=== PATIENT | female | born 1985 | race Caucasian/White ===

== ENCOUNTER → 2017-10-16 | Outpatient (CLI) | payer BC ==
[~2017-10-16] MED LIST: LEVO112T4 PO
== END | disposition home or self-care (01) ==
LOC: C.LABSPEC 11:07
PROVIDERS: ATTEND Obstetrics & Gynecology
DX: O24.419 Gestational diabetes mellitus in pregnancy, unspecified control (principal); Z3A.00 Weeks of gestation of pregnancy not specified

== ENCOUNTER 2017-10-19 19:23 | Emergency (ER) | payer BC ==
[~2017-10-19] VITALS: Ht 157.5 cm; Wt 50.8 kg
[2017-10-19 19:30] VITALS: Ht 157.5 cm; Wt 50.8 kg
--- NOTE | 2017-10-19 19:57 | EMERGENCY ROOM VISIT NOTE ---
History Report prepared by Derrek: Grecia Rodgers Under the Supervision of: Dr. Fredy Hobbs D.O. First contact with patient: 19:33 Chief Complaint: VAGINAL BLEEDING Stated Complaint: POSSIBLE MISCARRIAGE History of Present Illness The patient is a 32 year old female who presents to the Emergency Room with complaints of persistent vaginal bleeding that began 4 days ago. She states that her last normal menstrual period began on 08/07/17. The patient had a urine exam, which showed that she was . She reports that when she first noted the bleeding, it was small in quantity and dark in color. 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 She denies any abnormal discharge or pain. The patient states that she has been in the past, noting that she did not have any complications with that . She called her lathe mechanic during the weekend, who recommended a RhoGAM shot. Today, she called again to update them on her symptoms and they suggested she come into the Emergency Department for further evaluation. The patient reports a history of gestational diabetes, a deviated septum, and a thyroidectomy. Source of History: patient Onset: 4 days ago Position: other ( system) Quality: other (vaginal bleeding) Timing: other (persistent) Note: Patient denies: abnormal discharge or pain. Review of Systems See HPI for pertinent positives & negatives. A total of 10 systems reviewed and were otherwise negative. Past Medical & Surgical Medical Problems: (1) Gestational diabetes Surgical Problems: (1) Deviated septum (2) H/O thyroidectomy Family History Patient reports no known family medical history. No pertinent family history. Social History Smoking Status: Never Smoker Smokeless Tobacco Use: No Alcohol Use: none Drug Use: none Marital Status: Housing Status: lives with family Occupation Status: employed Current/Historical Medications Scheduled Levothyroxine Sodium (Levothyroxine Sodium), 112 MCG PO DAILY Allergies Coded Allergies: Penicillins (Verified Allergy, Severe, SOB-HIVES, 10/19/17) Physical Exam Vital Signs Date Time Temp Pulse Resp B/P (MAP) Pulse Ox O2 Delivery O2 Flow Rate FiO2 10/19/17 23:59 36.7 65 16 109/70 99 10/19/17 23:16 65 109/70 99 Room Air 10/19/17 22:16 67 108/65 99 Room Air 10/19/17 19:30 36.7 78 16 110/71 100 Room Air Physical Exam GENERAL: Patient is awake, alert, and in no acute distress. Patient is resting comfortably and showing no signs of anxiety EYES: The conjunctivae are clear. The pupils are round and reactive. EARS, NOSE, MOUTH AND THROAT: The nose is without any evidence of any deformity. Mucous membranes are moist tongue is midline NECK: The neck is nontender and supple. RESPIRATORY: Normal respiratory effort is noted there is no evidence of wheezing rhonchi or rales CARDIOVASCULAR: Regular rate and rhythm noted there no murmurs rubs or gallops normal S1 normal S2 GASTROINTESTINAL: The abdomen is soft. Bowel sounds are present in all quadrants. Abdomen is nontender MUSCULOSKELETAL/EXTREMITIES: There is no evidence of gross deformity full range of motion is noted in the hips and shoulders SKIN: There is no obvious evidence of any rash. There are no petechiae, pallor or cyanosis noted. NEUROLOGIC: Patient is awake alert and oriented x3 Medical Decision & Procedures ER Provider Diagnostic Interpretation: Radiology results as stated below per my review and radiologist interpretation: <14 WKS SINGLE CLINICAL HISTORY: Vaginal bleeding. COMPARISON STUDY: None. FINDINGS: The uterus measures 8.7 x 5.1 x 6.0 cm. Endometrium is heterogeneous and borderline thickened measuring 1.2 cm in thickness. No evidence for an intrauterine gestational sac. The ovaries are normal in size and demonstrate normal color flow. No adnexal masses identified. No pelvic free fluid. IMPRESSION: No evidence for an intrauterine gestational sac. If the patient has a positive test, then this could represent an early nonvisualized intrauterine gestation, recent spontaneous , or nonvisualized ectopic . Follow-up beta-hCG and/or pelvic ultrasound is recommended for further evaluation. Electronically signed by: Deniz Fleming M.D. 10/19/2017 10:24 PM Dictated Date/Time: 10/19/2017 10:21 PM Laboratory Results 10/19/17 20:25 Red Blood Count 3.39, Mean Corpuscular Volume 94.1, Mean Corpuscular Hemoglobin 32.2, Mean Corpuscular Hemoglobin Concent 34.2, Mean Platelet Volume 9.8, Neutrophils (%) (Auto) 51.8, Lymphocytes (%) (Auto) 34.7, Monocytes (%) (Auto) 7.7, Eosinophils (%) (Auto) 5.0, Basophils (%) (Auto) 0.7, Neutrophils # (Auto) 3.96, Lymphocytes # (Auto) 2.65, Monocytes # (Auto) 0.59, Eosinophils # (Auto) 0.38, Basophils # (Auto) 0.05 10/19/17 20:25 Test 10/19/17 20:25 White Blood Count 7.64 K/uL (4.8-10.8) Red Blood Count 3.39 M/uL (4.2-5.4) Hemoglobin 10.9 g/dL (12.0-16.0) Hematocrit 31.9 % (37-47) Mean Corpuscular Volume 94.1 fL (80-100) Mean Corpuscular Hemoglobin 32.2 pg (25-34) Mean Corpuscular Hemoglobin Concent 34.2 g/dl (32-36) Platelet Count 287 K/uL (130-400) Mean Platelet Volume 9.8 fL (7.4-10.4) Neutrophils (%) (Auto) 51.8 % Lymphocytes (%) (Auto) 34.7 % Monocytes (%) (Auto) 7.7 % Eosinophils (%) (Auto) 5.0 % Basophils (%) (Auto) 0.7 % Neutrophils # (Auto) 3.96 K/uL (1.4-6.5) Lymphocytes # (Auto) 2.65 K/uL (1.2-3.4) Monocytes # (Auto) 0.59 K/uL (0.11-0.59) Eosinophils # (Auto) 0.38 K/uL (0-0.5) Basophils # (Auto) 0.05 K/uL (0-0.2) RDW Standard Deviation 42.5 fL (36.4-46.3) RDW Coefficient of Variation 12.4 % (11.5-14.5) Immature Granulocyte % (Auto) 0.1 % Immature Granulocyte # (Auto) 0.01 K/uL (0.00-0.02) Prothrombin Time 10.2 SECONDS (9.0-12.0) Prothromb Time International Ratio 1.0 (0.9-1.1) Activated Partial Thromboplast Time 25.0 SECONDS (21.0-31.0) Partial Thromboplastin Ratio 1.0 Urine Color YELLOW Urine Appearance CLEAR (CLEAR) Urine pH 5.5 (4.5-7.5) Urine Specific [place] 1.026 (1.000-1.030) Urine Protein NEG (NEG) Urine Glucose (UA) NEG (NEG) Urine Ketones NEG (NEG) Urine Occult Blood 3+ (NEG) Urine Nitrite NEG (NEG) Urine Bilirubin NEG (NEG) Urine Urobilinogen NEG (NEG) Urine Leukocyte Esterase NEG (NEG) Urine WBC (Auto) 1-5 /hpf (0-5) Urine RBC (Auto) 0-4 /hpf (0-4) Urine Hyaline Casts (Auto) 1-5 /lpf (0-5) Urine Epithelial Cells (Auto) >30 /lpf (0-5) Urine Bacteria (Auto) 1+ (NEG) Urine Yeast (Auto) (NONE PRSENT) Anion Gap 4.0 mmol/L (3-11) Est Creatinine Clear Calc Drug Dose 82.7 ml/min Estimated GFR () 117.4 Estimated GFR (Non- 101.3 BUN/Creatinine Ratio 17.0 (10-20) Calcium Level 8.5 mg/dl (8.5-10.1) Total Bilirubin 0.3 mg/dl (0.2-1) Aspartate Amino Transf (AST/SGOT) 12 U/L (15-37) Alanine Aminotransferase (ALT/SGPT) 18 U/L (12-78) Alkaline Phosphatase 43 U/L (45-117) Total Protein 7.2 gm/dl (6.4-8.2) Albumin 4.2 gm/dl (3.4-5.0) Globulin 3.0 gm/dl (2.5-4.0) Albumin/Globulin Ratio 1.4 (0.9-2) Human Chorionic Gonadotropin, Quant 2225 mIU/mL Laboratory results per my review. ED Course 1937: The patient was evaluated in room C3. A complete history and physical examination were performed. Ordered a RhoGAM shot. 5: I reevaluated the patient, who was resting and states that she feels significantly better. Updated her on test findings. She verbalized complete understanding. 2328: Upon reevaluation, the patient is resting comfortably. I discussed the results and treatment plan with her. She verbalized agreement of the treatment plan. The patient was discharged home. Medical Decision Prior records/ancillary studies reviewed. Triage Nursing notes reviewed. The patient's history was concerning for vaginal bleeding and abdominal pain. Differential diagnosis: Etiologies such as ectopic , dysfunction uterine bleeding, bleeding dyscrasia, trauma, infection, as well as others were entertained. The patient is a 32-year-old female who presented to the emergency department for an evaluation of vaginal bleeding. The patient is approximately 11 weeks by dates. She was having cramping and bleeding. 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 The patient's beta hCG quantitative was well into the discriminatory zone. No definite intrauterine was noted on ultrasound but her endometrial stripe was thickened. Her physical exam was not consistent with acute surgical abdomen. She was not orthostatic by history. I discussed patient's laboratory and radiographic studies with her. She required RhoGam because of her blood type. I discussed that this could represent an ongoing miscarriage but ectopic was still a possibility. For this reason she was encouraged to follow-up with her primary care physician in 48 hours for repeat laboratory studies as well as an ultrasound if warranted. She was also encouraged to have her hemoglobin and her beta hCG quantitative repeated. Also recommended that she return to the emergency department immediately if symptoms change worsen or the need arises. Medication Reconcilliation Current Medication List: was personally reviewed by me Blood Pressure Screening Patient's blood pressure: Normal blood pressure Blood pressure disposition: Did not require urgent referral Impression Primary Impression: First trimester bleeding Additional Impression: Threatened miscarriage Scribe Attestation The scribe's documentation has been prepared under my direction and personally reviewed by me in its entirety. I confirm that the note above accurately reflects all work, treatment, procedures, and medical decision making performed by me. Departure Information Dispostion Home / Self-Care Referrals Hakan Rodriguez M.D. (PCP) Forms HOME CARE DOCUMENTATION FORM, IMPORTANT VISIT INFORMATION, WORK / SCHOOL INSTRUCTIONS Patient Instructions My [facility] Additional Instructions Follow-up with your MIXING ROLL OPERATOR physician in 48 hours to have a repeat blood test as well as a ultrasound if needed. Avoid any strenuous activity. I would recommend repeat laboratory studies to ensure that your anemia is improving as your red blood cell count was low in the emergency department this evening. Return the emergency department immediately if symptoms change worsen or the need arises. Problem Qualifiers
[2017-10-19 21:02] LABS: BASO % 0.7 %; BASO ABS # 0.05 K/uL (0-0.2); EOS ABS # 0.38 K/uL (0-0.5); HEMATOCRIT 31.9 % (37-47); HEMOGLOBIN 10.9 g/dL (12.0-16.0); IG# 0.01 K/uL (0.00-0.02); LYMPH % 34.7 %; LYMPH ABS # 2.65 K/uL (1.2-3.4); MEAN CELL VOLUME 94.1 fL (80-100); MEAN CORPUSCULAR HEMOGLOBIN 32.2 pg (25-34); MEAN CORPUSCULAR HGB CONC 34.2 g/dl (32-36); MEAN PLATELET VOLUME 9.8 fL (7.4-10.4); MONO % 7.7 %; MONO ABS # 0.59 K/uL (0.11-0.59); NEUT % 51.8 %; NEUT ABS # 3.96 K/uL (1.4-6.5); PLATELET COUNT 287 K/uL (130-400); RED CELL DISTRIBUTION WIDTH CV 12.4 % (11.5-14.5); RED CELL DISTRIBUTION WIDTH SD 42.5 fL (36.4-46.3); WHITE BLOOD COUNT 7.64 K/uL (4.8-10.8)
[2017-10-19 21:12] LABS: ALBUMIN 4.2 gm/dl (3.4-5.0); CALCIUM 8.5 mg/dl (8.5-10.1); CREATININE 0.78 mg/dl (0.60-1.20); POTASSIUM 3.5 mmol/L (3.5-5.1)
[2017-10-19 21:15] LABS: TOTAL PROTEIN 7.2 gm/dl (6.4-8.2)
--- NOTE | 2017-10-19 22:25 | DIAGNOSTIC IMAGING REPORT ---
<14 WKS SINGLE CLINICAL HISTORY: Vaginal bleeding. COMPARISON STUDY: None. FINDINGS: The uterus measures 8.7 x 5.1 x 6.0 cm. Endometrium is heterogeneous and borderline thickened measuring 1.2 cm in thickness. No evidence for an intrauterine gestational sac. The ovaries are normal in size and demonstrate normal color flow. No adnexal masses identified. No pelvic free fluid. IMPRESSION: No evidence for an intrauterine gestational sac. If the patient has a positive test, then this could represent an early nonvisualized intrauterine gestation, recent spontaneous , or nonvisualized ectopic . Follow-up beta-hCG and/or pelvic ultrasound is recommended for further evaluation. Electronically signed by: Deniz Fleming M.D. 10/19/2017 10:24 PM Dictated Date/Time: 10/19/2017 10:21 PM
[2017-10-19] MEDS ORDERED: LEVO112T4 PO (23:01)
[2017-10-19 23:59] VITALS: BP 109/70; PULSE 65; TEMP 36.7; O2SAT 99
== END 2017-10-20 | disposition home or self-care (01) ==
LOC: C.EDB 19:24 → C.EDC 10-20
DX: O20.0 Threatened abortion (principal); Z86.32 Personal history of gestational diabetes; E89.0 Postprocedural hypothyroidism; Z88.0 Allergy status to penicillin; Z3A.11 11 weeks gestation of pregnancy

== ENCOUNTER 2019-10-19 23:41 | Inpatient (IN) ==
[2019-10-20] MEDS ORDERED: CEFAZOLIN 1000MG 1,000 MG/7.5 ML SYR IV PRN (00:11)
[2019-10-20] MEDS ORDERED: OXYTOCIN 30 UNITS/500 ML BAG IV PRN ×3 (00:11→08:56)
--- NOTE | 2019-10-20 00:18 | History & Physical Report ---
Date of Service October 20, 2019 Assessment & Plan (1) Diet controlled gestational diabetes mellitus (GDM), antepartum: check blood sugar q3 hr for goal of 70-120 (2) GBS (group B Streptococcus carrier), +RV culture, currently : treat with ancef and monitor closely. Unfortunately no sensitivities done for clinda, so may have to go with vanc. (3) Normal labor: admit. fetus category one and reassuring. epidural now as desires. Then plan expectant management. arom/pit as indicated. anticipate . History of Present Illness Chief Complaint: contractions Primary Care Provider: NO PCP Patient is a 34yowf with iup at 40 6/7 weeks who presents to labor and delivery with c/o contractions since 8pm. Getting strong. no vb/lof. +fm. complicated by GDM, diet controlled well. hypothyroidism--well managed, Rh-, received rhogam, GBS positive. Patient has allergy to pcn which she notes is hives. When questioned about sob, she is vague about this. Had been scheduled for indution today and had discussed with Dr. Valencia about this allergy and they had decided to trial Ancef carefully. labs--O-/ab-/ri/rprnr/hepb-/hiv-/gc/ct-/ declines cf/sma/afp/low risk panorama Allergies Allergy/AdvReac Type Severity Reaction Status Date / Time Penicillins Allergy Severe SOB-HIVES Verified 10/14/19 09:26 bee venom protein (honey bee) Allergy Mild Only when Verified 10/14/19 09:26 stung multipe times Home Medications Home Medications Medication Instructions Recorded Confirmed Type blood sugar diagnostic #10 ea 02/15/19 10/14/19 History lancets 33 gauge #100 ea 02/15/19 10/14/19 History prenat.vits,tin,vzi-ntjr-myvvs 1 tab PO DAILY 02/15/19 10/19/19 History acetone (urine) test #50 ea 02/18/19 10/14/19 Rx levothyroxine 100 mcg tablet 100 mcg PO DAILY #90 tab 08/04/19 10/19/19 Rx nitrofurantoin 100 mg PO Q12H 5 Days #10 cap 09/30/19 10/19/19 Rx monohydrate/macrocrystals 100 mg capsule Patient History Medical History Fracture of L1 vertebra History of gestational diabetes mellitus (Inactive) Spontaneous (Inactive) Varicella Surgical History History of cervical biopsy History of thyroidectomy S/P inguinal hernia repair S/P wisdom tooth extraction Status post nasal septoplasty Family History Mother Hypothyroidism Aunt Graves' disease Brother Diaphragmatic hernia Social History Preferred Language: French Beliefs That Will Affect Care: None marital status: marital status details: Ajith Noble (36) [phone] Current Living Situation Comment: dog current occupational status: employed 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 Review of Systems All systems reviewed & are unremarkable except as noted in HPI & below Physical Exam Constitutional: WD/WN, vitals as above Gastrointestinal (Abdomen): soft, gravid, nt Psychiatric: A+Ox3, euthymic affect Genitourinary: cx--/-2 per nursing toco--q3-5min efm--130s with mod variability, accels to 150s, no decels Results & Data Vital Signs (Past 12 Hours) Vital Signs Pulse Resp BP 10/19/19 23:53 70 129/85 10/19/19 23:52 59 L 18 143/81 H 10/19/19 23:47 59 L 143/81 H Code Status & VTE Plan VTE Prophylaxis Plan VTE Prophylaxis will be ordered: No Coding Level of Care Code None Diagnoses Diet controlled gestational diabetes mellitus (GDM), antepartum O24.410 GBS (group B Streptococcus carrier), +RV culture, currently O99.820 Normal labor O80; Z37.9
[2019-10-20] MEDS: LACTATED RINGER'S 1,000 ML IV PRN ×3 (00:25→07:53)
[2019-10-20] MEDS ORDERED: ePHEDrine sulfate 50 MG/ML AMP ONE (00:28)
[2019-10-20] MEDS ORDERED: BUPIVACAINE 0.25% 30 ML VIAL ONE (00:28)
[2019-10-20] MEDS ORDERED: fentaNYL citrate 100 MCG/2 ML VIAL ONE (00:28)
[2019-10-20] MEDS ORDERED: fentaNYL 2MCG/ML ROPIV 1.25MG/ML 100 ML BAG EPI ONE (00:29)
[2019-10-20] MEDS ORDERED: CEFAZOLIN 2000MG 2,000 MG/15 ML SYR IV STA (00:30)
[2019-10-20 00:42] LABS: Hematocrit (blood only) 32.5 % (37-47); Hemoglobin 10.7 g/dL (12.0-16.0); Mean Corpuscular Hemoglobin 29.9 pg (25-34); Mean Corpuscular Volume 90.8 fL (80-100); Mean Platelet Volume 10.8 fL (7.4-10.4); Platelet Count 247 K/uL (130-400); RDW Coefficient of Variation 15.5 % (11.5-14.5); RDW Standard Deviation 50.8 fL (36.4-46.3); Red Blood Count 3.58 M/uL (4.2-5.4); White Blood Count 11.32 K/uL (4.8-10.8)
--- NOTE | 2019-10-20 00:56 | Anesthesiology Consultation ---
Date of Service October 20, 2019 Assessment & Plan (1) Encounter for pre-operative examination: Chart Review Chart Review: Acceptable Risk for Labor Epidural Consults Requested none ASA ASA2 Proposed Anesthesia Anesthesia Type: Labor Epidural Risk / Benefits Reviewed With: PT / POA / Parent / Guardian, Accepts Plan and Informed Consent Obtained History Height/Weight Height: 5 ft 2 in Weight: 72.575 kg Allergies Allergy/AdvReac Type Severity Reaction Status Date / Time Penicillins Allergy Severe SOB-HIVES Verified 10/14/19 09:26 bee venom protein (honey bee) Allergy Mild Only when Verified 10/14/19 09:26 stung multipe times Medications Home Medications Medication Instructions Recorded Confirmed Last Taken blood sugar diagnostic #10 ea 02/15/19 10/14/19 Unknown lancets 33 gauge #100 ea 02/15/19 10/14/19 Unknown prenat.vits,tin,obe-edjg-hazlf 1 tab PO DAILY 02/15/19 10/19/19 10/19/19 acetone (urine) test #50 ea 02/18/19 10/14/19 Unknown levothyroxine 100 mcg tablet 100 mcg PO DAILY #90 tab 08/04/19 10/19/19 10/19/19 Active Medications Generic Name Dose Route Start Last Admin Trade Name Freq PRN Reason Stop Dose Admin Lactated Ringer's 1,000 mls @ 125 mls/hr 10/20/19 00:11 10/20/19 00:25 Lr IV 10/22/19 00:10 999 mls/hr .Q8H PRN Administration L&D Protocol Protocol Past Medical History Medical History Fracture of L1 vertebra History of gestational diabetes mellitus (Inactive) Hypothyroidism, postablative (Chronic) Spontaneous (Inactive) Varicella Exercise / Class Metabolic Activity II 4-5 Yardwork/Stairs/Walk up hill Past Family History Family History Mother Hypothyroidism Aunt Graves' disease Brother Diaphragmatic hernia Past Surgical History Surgical History History of cervical biopsy History of thyroidectomy S/P inguinal hernia repair S/P wisdom tooth extraction Status post nasal septoplasty Past Anesthesia History No Hx of Anesthesia Complications and No Family Hx of Anesthesia Complications History of PONV No Hx of PONV and No Hx of Motion Sickness Social History Smoking Status: Never smoker Hx Alcohol Use: No Hx Substance Use: No Physical Exam Vital Signs Last Vital Signs Temp 98.8 F 10/19/19 23:53 Pulse 70 10/19/19 23:53 Resp 18 10/19/19 23:53 BP 129/85 10/19/19 23:53 ENMT Mouth: no dentition abnormality Thyromental Distance: > or= 3.5 Finger Breadths Mallampati Class: II Neck normal visual inspection Respiratory normal respiratory effort Auscultation: lungs clear to auscultation bilaterally Cardiovascular Rate/Rhythm: regular rate and regular rhythm Testing Laboratory Results 10/20/19 00:26 10/20/19 00:37 POC Glucose 80
[2019-10-20 01:06] LABS: Mean Corpuscular Hgb Conc 32.9 g/dL (32-36)
[2019-10-20] MEDS ORDERED: ONDANSETRON INJ 2 MG/ML 2 ML VIAL IV PRN (01:12)
[2019-10-20] MEDS ORDERED: NALBUPHINE HCL INJ 10 MG/ML AMP IV PRN (01:12)
[2019-10-20] MEDS ORDERED: ePHEDrine sulfate 50 MG/ML AMP IV PRN (01:12)
[2019-10-20] MEDS ORDERED: fentaNYL 2MCG/ML ROPIV 1.25MG/ML 100 ML BAG EPI PRN (01:12)
[2019-10-20] MEDS ORDERED: NALOXONE HCL 1 MG in SODIUM CHLORIDE 0.9% 1000ML 1,000 ML IV PRN (01:12)
[2019-10-20] MEDS ORDERED: DiphenhydrAMINE HCL 50 MG/ML VIAL IV PRN (01:12)
[2019-10-20] MEDS ORDERED: NALOXONE HCL 0.4 MG/1 ML VIAL/CARP IV PRN (01:12)
--- NOTE | 2019-10-20 07:25 | Anesthesiology Progress Note ---
Date of Service October 20, 2019 Subjective Called by nurse for labor pt c/o pain. 8 cm cervical dilation at last exam. 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 Bolused epidural with 2% lidocaine 5cc plus fentanyl 100mcg. VSS, FHR nl. Physical Exam Vital Signs: Last Vital Signs Temp 37.3 C 10/20/19 07:05 Pulse 82 10/20/19 07:20 Resp 22 10/20/19 07:05 BP 138/85 10/20/19 07:19 Pulse Ox 99 10/20/19 07:20 Results & Data Medications Administered Lactated Ringer's (Lr) 1,000 mls @ 125 mls/hr IV .Q8H PRN; Protocol PRN Reason: L&D Protocol Stop: 10/22/19 00:10 Last Admin: 10/20/19 02:53 Dose: 125 mls/hr Documented by: [id number] Infusion: 10/20/19 02:53 Dose: 125 mls/hr Documented by: [id number] Infusion: 10/20/19 01:09 Dose: 125 mls/hr Documented by: [id number] Admin: 10/20/19 00:25 Dose: 999 mls/hr Documented by: [id number] Oxytocin (Pitocin) 30 units in 500 mls @ 4 mls/hr IV .Q24H PRN; Protocol PRN Reason: Labor Induction/Augmentation Stop: 10/22/19 02:48 Last Titration: 10/20/19 03:45 Dose: 0.24 units/hr, 4 mls/hr Documented by: [id number] Admin: 10/20/19 03:07 Dose: 0.12 units/hr, 2 mls/hr Documented by: [id number] Cosigned by: [id number]
[2019-10-20] MEDS ORDERED: OXYCODONE/ACETAMINOPHEN 5mg/325mg TAB PO PRN (08:37)
[2019-10-20] MEDS ORDERED: ACETAMINOPHEN 325 MG TAB PO PRN (08:37)
--- NOTE | 2019-10-20 08:40 | Delivery Summary ---
Vaginal Delivery Summary Date of Service October 20, 2019 Vaginal Delivery Summary Pre-operative Diagnosis: at 40+weeks active labor Post-operative Diagnosis: same Procedure: epidural first degree lac and repair EBL: 350cc Anesthesia: epidural Procedure: The patient pushed to deliver a viable male in kristian position. The nose and mouth were bulb suctioned on the perineum, a nuchal cord x 1 reduced easily, and the rest of the infant was then delivered without difficulty. The baby was vigorous. The nose and mouth were again bulb suctioned and the infant was placed in the maternal abdomen for drying and attention. Cord was clamped and cut at 30 secs of life. Cord blood and segment obtained. Placenta delivered spontaneous, intact with a three vessel cord. Cervix/sulci/rectum were intact. A first degree perineal laceration was repaired in the normal standard fashion. Hemostasis obtained with dilute pitocin and fundal massage. Apgars were 9/9. Mother and baby doing well at the end of the delivery.
[2019-10-20] MEDS ORDERED: bisacodyL 10 MG SUPP PR PRN (08:56)
[2019-10-20] MEDS ORDERED: SUPERCREAM 0.870% 15 GM JAR EXT PRN (08:56)
[2019-10-20] MEDS ORDERED: BENZOCAINE 20% AER SPR 82.5 GM CAN EXT PRN (08:56)
[2019-10-20] MEDS ORDERED: HYDROCORTISONE ACETATE 25 MG SUPP PR PRN (08:56)
[2019-10-20] MEDS ORDERED: DIPHTHERIA/TETANUS/PERTUSSIS 0.5 ML SYR/VIAL IM ONE (09:00)
[2019-10-20] MEDS: IBUPROFEN 600 MG TAB PO PRN ×2 (10:54→20:34)
--- NOTE | 2019-10-20 11:49 | Anesthesia Procedure Note ---
Date of Service October 20, 2019 Anesthesia Post Epidural Note Vital Signs Vital Signs: Temp Pulse Resp BP Pulse Ox 37.3 C 75 20 110/59 L 97 10/20/19 07:05 10/20/19 11:37 10/20/19 10:37 10/20/19 11:37 10/20/19 08:35 Notes Mental Status: alert / awake / arousable Nausea / Vomiting: adequately controlled Pain: adequately controlled Airway Patency, RR, SpO2: stable & adequate BP & HR: stable & adequate Hydration State: stable & adequate Neuraxial Anesthesia: was administered and sensory block is resolving Anesthetic Complications: no major complications apparent and Pt Satisfied with anesthetic care Epidural: Removed without complications and With tip intact
[2019-10-20] MEDS: LEVOTHYROXINE SODIUM 100 MCG TABLET PO SCH (12:27)
[2019-10-20] MEDS ORDERED: fentaNYL citrate 100 MCG/2 ML VIAL IV ONE (14:44)
[2019-10-20] MEDS ORDERED: LIDOCAINE HCL 2% MPF (LOCAL) 5 ML VIAL INFIL ONE (14:44)
[2019-10-20] MEDS: DOCUSATE SODIUM 100 MG CAP PO SCH (20:31)
[2019-10-21] MEDS: IBUPROFEN 600 MG TAB PO PRN ×3 (01:45→20:03)
[2019-10-21 06:18] LABS: Hematocrit (blood only) 28.5 % (37-47); Hemoglobin 9.4 g/dL (12.0-16.0)
[2019-10-21] MEDS: LEVOTHYROXINE SODIUM 100 MCG TABLET PO SCH (06:32)
--- NOTE | 2019-10-21 07:05 | Obstetrical Progress Note ---
Date of Service October 21, 2019 PPD day 1. Min bleeding. No ext pain Assessment & Plan (1) Encounter for pre-operative examination: PPD 1. Wishes home later possibly Physical Exam Genitourinary normal external appearance Results & Data Vital Signs (Past 12 Hours) Vital Signs Temp Pulse Pulse Resp BP Pulse Ox 10/21/19 04:20 98.8 F 77 17 114/69 97 10/20/19 23:15 97.9 F 75 16 123/70 97 10/20/19 21:26 98.2 F 79 16 120/69
[2019-10-21] MEDS: PRENATAL VITAMIN 1 TAB PO SCH (08:41)
[2019-10-21] MEDS: DOCUSATE SODIUM 100 MG CAP PO SCH ×2 (08:41→20:03)
[2019-10-21] MEDS ORDERED: bisacodyL 5 MG TABEC PO SCH (20:00)
--- NOTE | 2019-10-22 06:30 | Obstetrical Progress Note ---
Date of Service October 22, 2019 Assessment & Plan (1) Encounter for care and examination after delivery: satisfactory progress discharge to home follow up in 6 weeks Day #:: 2 Subjective Ambulation: ambulating normally Voiding: no voiding problems Passing Gas:: Yes Diet Tolerance:: regular diet Feeding Type:: breast feeding Physical Exam Constitutional WD/WN, vitals as above Psychiatric A+Ox3, euthymic affect Genitourinary OB Exam Abdomen: + fundal height Fundus: + firm and + relation to umbilicus (2 below) Results & Data Vital Signs (Past 12 Hours) Vital Signs Temp Pulse Resp BP 10/21/19 23:35 97.9 F 70 18 118/67
[2019-10-22] MEDS: LEVOTHYROXINE SODIUM 100 MCG TABLET PO SCH (06:45)
[2019-10-22] MEDS: IBUPROFEN 600 MG TAB PO PRN (07:50)
[2019-10-22] MEDS: DOCUSATE SODIUM 100 MG CAP PO SCH (07:50)
[2019-10-22] MEDS: PRENATAL VITAMIN 1 TAB PO SCH (07:51)
== END 2019-10-22 14:45 | disposition home or self-care (01) | DRG 806 ==
LOC: 4S1 23:41 → OPB 23:41 → 4S1 10-20 00:11 → 4S2 10-20 12:24

== ENCOUNTER 2023-12-24 06:42 | Inpatient (IN) ==
[2023-12-24] MEDS ORDERED: OXYTOCIN 30 UNITS/NSS 30 UNITS/500 ML BAG IV PRN (15:26)
[2023-12-24] MEDS ORDERED: LIDOCAINE 1% LOCAL 20 ML VIAL INFIL PRN (15:26)
--- NOTE | 2023-12-24 15:35 | History & Physical Report ---
Date of Service December 24, 2023 Assessment & Plan (1) Encounter for induction of labor: Plan 38 y/o at 39w 1d here for IOL: Pitocin AROM as indicated Epidural prn Monitor heart tracings, category 1 Admission and Anticipated Discharge Date Admission Date: December 24, 2023 History of Present Illness Chief Complaint: planned induction Primary Care Provider: John Fernandez 38 y/o female currently at 39w 1d with an HUSAM 12/31/23 as determined by US#1, who is here for IOL: complicated by: Hypothyroid GDM AMA Weekly NST's @ 36 weeks Need for Rhogam d/t Rh negative Mother *Rhogam given 10/09/23 - SP Polyhydramnios - 9.7cm Had regular appointments with OB denies Contractions + movement denies Fluid loss denies Vaginal bleeding External FHT and external uterine monitors used: Category 1 tracing, baseline rate 150, moderate variability, irregular uterine contractions OB Labs: Blood Type O Negative 07/24/23 Antibody Screen NEGATIVE 10/09/23 Hemoglobin 10.4 g/dl (12.0-16.0) L 10/09/23 Hematocrit 30.6 % (37.0-47.0) L 10/09/23 Mean Corpuscular Volume 96.8 fL (80.0-100.0) 07/24/23 Platelet Count 243 K/uL (130-400) 07/24/23 Rubella IgG Antibody Immune (Immune) 07/24/23 Rapid Plasma Reagin Nonreactive (Nonreactive) 07/24/23 Hepatitis B Surface Antigen Neg (Neg) 03/11/19 Hepatitis B Surface Antigen. NON-REACTIVE (NON-REACTIVE) 07/24/23 Hepatitis C Antibody (EIA) NON-REACTIVE (NON-REACTIVE) 07/24/23 HIV (1&2) Ab and P24 Ag, 4th Gener Neg (Neg) 03/11/19 HIV (1&2) Ag and Ab Confirmation NON-REACTIVE (NON-REACTIVE) 07/24/23 OB Optional Labs: Chlamydia trachomatis RNA Not Detected (NotDetected) 07/06/23 Neisseria gonorrhoeae RNA Not Detected (NotDetected) 07/06/23 Thyroid Stimulating Hormone (TSH) 0.148 uIu/ml (0.300-4.500) L 11/06/23 Labs Reviewed: cfdna-low risk--mln Allergies Allergy/AdvReac Type Severity Reaction Status Date / Time Penicillins Allergy Severe SOB-HIVES Verified 12/24/23 15:45 bee venom protein (honey bee) Allergy Mild Only when Verified 12/23/23 10:44 stung multipe times Home Medications Medication Instructions Recorded Confirmed Type 21-iron fu-folic acid PO 07/01/23 12/23/23 History [ Complete] acetone (urine) test (Ketone Urine #50 ea 07/24/23 12/23/23 Rx Test strips) blood sugar diagnostic (OneTouch #150 ea 07/24/23 12/23/23 Rx Verio test strips) blood-glucose meter (OneTouch #1 ea 07/24/23 12/23/23 Rx Verio Reflect Meter) lancets 33 gauge (OneTouch Delica #150 ea 07/24/23 12/23/23 Rx Plus Lancet) levothyroxine 88 mcg tablet 88 mcg PO .COMPLEX 11/20/23 12/24/23 History Patient History Medical History History of gestational diabetes mellitus Spontaneous Varicella Fracture of L1 vertebra Surgical History S/P inguinal hernia repair S/P wisdom tooth extraction History of thyroidectomy Status post nasal septoplasty History of cervical biopsy Family History Mother Hypothyroidism Aunt Graves' disease Brother Diaphragmatic hernia Denies family history of Ovarian cancer Prostate cancer Breast cancer Colorectal cancer Social History Smoking Status: Never smoker Do You Dip or Chew Tobacco: No; Hx Alcohol Use: No Hx Substance Use: No Preferred Language: Turkmen Communication Ability: Effective Plant 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 Date GA wks Lbr Lgth wt Sex Type del Anes Place Del Prov ? Comment 11/01/09 41 12 6-13 F Epid ural Other 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 New Review of Systems denies chest pain or SOB denies fever/chills denies HURLEY/changes in vision denies dysuria denies LE pain Physical Exam Physical Exam: General: Alert and oriented. No acute distress Cardiac: Regular rate and rhythm, no murmurs appreciated Respiratory: Lungs clear to auscultation bilaterally, No increased work of breathing Abdominal: Soft, non-tender, non-distended. Bowel sounds present. Gravid uterus. Extremities: No lower extremity edema, calves non-tender bilaterally FHT/[place]: Category 1 tracing, baseline rate 150, moderate variability, irregular uterine contractions Supervising Physician Co-Signing Physician Notes Resident Physician Supervision Note: I was present with Dr. Brown during the history and exam. I discussed the case with the resident and agree with the findings and plan as documented in the note. Any exceptions or clarifications are listed here: 38yo at 39wks for planned induction with GDM and polyhydramnios. No concerns. Cx 08/23/3, PROCEDURE: sse cx visualized, grasped on ant lip with ring forcep, leong through os and balloon inflated with 40cc sterile water. Spec removed, leong taped to leg. pt ambika well. FHTS categ 1. Will admit, labs, bsgs q2hr in active labor. arom when able. start pit. epidural when desires. Documented By: Leena Foster MD, FACOG Resident Activity Tracking Resident Involvement: Resident Care Provided Care Provided: OB Delivery
[2023-12-24 16:22] LABS: Hematocrit (blood only) 29.8 % (37.0-47.0); Mean Corpuscular Hemoglobin 31.3 pg (25.0-34.0); Mean Corpuscular Hgb Conc 33.6 g/dL (32.0-36.0); Mean Corpuscular Volume 93.1 fL (80.0-100.0); Mean Platelet Volume 10.5 fL (9.4-12.4); Platelet Count 236 K/uL (130-400); RDW Coefficient of Variation 13.4 % (11.5-14.5); RDW Standard Deviation 45.2 fL (36.4-46.3); White Blood Count 10.62 K/ul (4.8-10.8)
--- NOTE | 2023-12-24 16:43 | Labor Progress Brief Note ---
Date of Service December 24, 2023 Subjective leong balloon ripening placed. see other note. could not place billing with that note so signing this note Assessment & Plan Admission and Anticipated Discharge Date Admission Date: December 24, 2023 Results & Data Vital Signs (Past 12 Hours) Vital Signs Temp Pulse Resp BP 12/24/23 15:58 81 126/71 12/24/23 15:46 97.9 F 16 Coding Level of Care Code None CPT Codes Misx Procedure Codes - 65653 Placement of cervical dilator: 80968 Placement of cervical dilator ([id number]) MAINTENANCE AIDE Miscellaneous Codes Misx Procedure Codes 97041 Placement of cervical dilator
[2023-12-24] MEDS: LACTATED RINGER'S 1,000 ML IV PRN (16:47)
[2023-12-24] MEDS: OXYTOCIN 30 UNITS/NSS 30 UNITS/500 ML BAG IV PRN (16:48)
[2023-12-24] MEDS ORDERED: ePHEDrine sulfate 50 MG/ML AMP ONE (17:51)
[2023-12-24] MEDS ORDERED: SODIUM CHLORIDE 0.9% PF INJ 10 ML VIAL ONE (17:51)
[2023-12-24] MEDS ORDERED: fentaNYL citrate PF 100 MCG/2 ML VIAL ONE (17:51)
--- NOTE | 2023-12-24 18:41 | Anesthesiology Consultation ---
Date of Service December 24, 2023 Assessment & Plan Chart Review Chart Review: Acceptable Risk for Labor Epidural Consults Requested none ASA ASA2 Proposed Anesthesia Anesthesia Type: Labor Epidural Risk / Benefits Reviewed With: PT / POA / Parent / Guardian, Accepts Plan and Informed Consent Obtained History Height/Weight Height: 5 ft 2 in Weight: 73.028 kg Allergies Allergy/AdvReac Type Severity Reaction Status Date / Time Penicillins Allergy Severe SOB-HIVES Verified 12/24/23 15:45 bee venom protein (honey bee) Allergy Mild Only when Verified 12/23/23 10:44 stung multipe times Medications Home Medications Medication Instructions Recorded Confirmed Last Taken 21-iron fu-folic acid PO 07/01/23 12/23/23 1 Week Ago [ Complete] ~12/17/23 acetone (urine) test (Ketone Urine #50 ea 07/24/23 12/23/23 Unknown Test strips) blood sugar diagnostic (OneTouch #150 ea 07/24/23 12/23/23 Unknown Verio test strips) blood-glucose meter (OneTouch #1 ea 07/24/23 12/23/23 Unknown Verio Reflect Meter) lancets 33 gauge (OneTouch Delica #150 ea 07/24/23 12/23/23 Unknown Plus Lancet) levothyroxine 88 mcg tablet 88 mcg PO .COMPLEX 11/20/23 12/24/23 1 Day Ago ~12/23/23 Active Medications Generic Name Dose Route Start Last Admin Trade Name Freq PRN Reason Stop Dose Admin Oxytocin 30 units in 500 mls @ 3 mls/hr 12/24/23 15:31 12/24/23 17:25 Pitocin 30 Units/Nss IV 12/26/23 15:30 0.18 units/hr .Q24H PRN 3 mls/hr Labor Induction/Augmentation Titration Protocol 0.18 UNITS/HR Lactated Ringer's 1,000 mls @ 125 mls/hr 12/24/23 15:26 12/24/23 16:47 Lr IV 12/26/23 15:25 125 mls/hr .Q8H PRN Administration L&D Protocol Protocol Past Medical History Medical History History of gestational diabetes mellitus Spontaneous Varicella Fracture of L1 vertebra Exercise / Class Metabolic Activity II 4-5 Yardwork/Stairs/Walk up hill Past Family History Family History Mother Hypothyroidism Aunt Graves' disease Brother Diaphragmatic hernia Denies family history of Ovarian cancer Prostate cancer Breast cancer Colorectal cancer Past Surgical History Surgical History S/P inguinal hernia repair S/P wisdom tooth extraction History of thyroidectomy Status post nasal septoplasty History of cervical biopsy Past Anesthesia History No Hx of Anesthesia Complications and No Family Hx of Anesthesia Complications History of PONV No Hx of PONV and No Hx of Motion Sickness Social History Smoking Status: Never smoker Do You Dip or Chew Tobacco: No Hx Alcohol Use: No Hx Substance Use: No substance use type: does not use Physical Exam Vital Signs Last Vital Signs Temp 97.9 F 12/24/23 15:46 Pulse 88 12/24/23 18:37 Resp 16 12/24/23 15:46 BP 111/70 12/24/23 17:58 Pulse Ox 100 12/24/23 18:37 ENMT Mouth: no dentition abnormality Thyromental Distance: > or= 3.5 Finger Breadths Mallampati Class: II Neck normal visual inspection Respiratory normal respiratory effort Auscultation: lungs clear to auscultation bilaterally Cardiovascular Rate/Rhythm: regular rate and regular rhythm Testing Laboratory Results 12/24/23 15:56 12/24/23 16:53 POC Glucose 86
[2023-12-24] MEDS: fentANYL 2 MCG/ML BUPIVacaine 0.125%-NSS 100ML BAG ONE (18:55)
[2023-12-24] MEDS: BUPIVACAINE 0.25% PF 30 ML VIAL ONE (18:55)
[2023-12-24] MEDS: LIDOCAINE 2%/EPINEPHRINE 1:200,000 20 ML PF ONE (18:56)
[2023-12-24] MEDS ORDERED: BUPIVACAINE 0.25% PF 30 ML VIAL EPI PRN (18:57)
[2023-12-24] MEDS ORDERED: SODIUM CHLORIDE 0.9% PF INJ 10 ML VIAL EPI STA (18:57)
[2023-12-24] MEDS ORDERED: LIDOCAINE 2%/EPINEPHRINE 1:200,000 20 ML PF EPI STA (18:57)
[2023-12-24] MEDS ORDERED: fentANYL 2 MCG/ML BUPIVacaine 0.125%-NSS 100ML BAG EPI PRN (18:57)
[2023-12-24] MEDS ORDERED: LIDOCAINE 2% MPF LOCAL 5 ML VIAL EPI PRN (18:57)
[2023-12-24] MEDS ORDERED: SODIUM CHLORIDE 0.9% PF INJ 10 ML VIAL EPI PRN (18:57)
[2023-12-24] MEDS ORDERED: BUPIVACAINE 0.25% PF 30 ML VIAL EPI STA (18:57)
[2023-12-24] MEDS ORDERED: NALBUPHINE HCL 5 MG in SYRINGE 0 ML IV PRN (18:57)
[2023-12-24] MEDS ORDERED: ePHEDrine sulfate 50 MG/ML AMP IV PRN (18:57)
[2023-12-24] MEDS ORDERED: fentaNYL citrate PF 100 MCG/2 ML VIAL EPI STA (18:57)
[2023-12-24] MEDS ORDERED: NALOXONE HCL 0.4 MG/1 ML VIAL/CARP IV PRN (18:57)
[2023-12-24] MEDS ORDERED: diphenhydrAMINE 50 MG/ML VIAL IV PRN (18:57)
[2023-12-24] MEDS ORDERED: ONDANSETRON INJ 2 MG/ML 2 ML VIAL IV PRN (18:57)
[2023-12-24] MEDS ORDERED: fentaNYL citrate PF 100 MCG/2 ML VIAL EPI PRN (18:57)
[2023-12-24] MEDS ORDERED: NALOXONE HCL 1 MG in SODIUM CHLORIDE 0.9% 1,000 ML IV PRN (18:57)
[2023-12-24] MEDS ORDERED: ROPIVACAINE 0.5% PF 5 MG/ML 20 ML VIAL EPI PRN (18:57)
--- NOTE | 2023-12-24 19:41 | Labor Progress Brief Note ---
Date of Service December 24, 2023 Subjective comfortable Assessment & Plan (1) Encounter for induction of labor: (2) Polyhydramnios affecting : Plan will see how arom helps labor pattern. fhts categ 1. c/w pit. Admission and Anticipated Discharge Date Admission Date: December 24, 2023 Physical Exam Constitutional: WD/WN, vitals as above Genitourinary: Manual OB Exam: + cervical dilation 5 cm, + cervical effacement 50%, + station -2 and + amniotic fluid (arom) clear Results & Data Vital Signs (Past 12 Hours) Vital Signs Temp Pulse Resp BP Pulse Ox 12/24/23 19:39 126/62 12/24/23 19:37 73 98 12/24/23 19:33 81 113/66 12/24/23 19:32 79 98 12/24/23 19:28 73 116/69 12/24/23 19:27 93 H 98 12/24/23 19:22 75 111/68 100 12/24/23 19:17 88 112/70 100 12/24/23 19:13 85 112/66 12/24/23 19:12 80 99 12/24/23 19:07 99 12/24/23 19:07 80 12/24/23 19:07 78 111/65 12/24/23 19:02 100 12/24/23 19:02 76 12/24/23 19:02 81 121/68 12/24/23 19:00 73 16 115/66 12/24/23 18:58 88 116/68 12/24/23 18:57 74 100 12/24/23 18:56 69 122/71 12/24/23 18:55 82 124/73 12/24/23 18:52 82 100 12/24/23 18:47 86 100 12/24/23 18:42 75 100 12/24/23 18:37 88 100 12/24/23 18:32 81 100 12/24/23 18:27 90 100 12/24/23 18:22 73 100 12/24/23 18:17 86 100 12/24/23 18:12 76 99 12/24/23 18:07 78 99 12/24/23 18:02 80 100 12/24/23 17:58 80 111/70 12/24/23 17:57 76 97 06/27/24 16:50 80 111/70 06/27/24 15:58 81 126/71 12/24/23 15:46 97.9 F 16 Coding Level of Care Code None Diagnoses Encounter for induction of labor Z34.90 Polyhydramnios affecting O40.9XX0
--- NOTE | 2023-12-24 23:57 | Delivery Summary ---
Vaginal Delivery Summary Date of Service December 24, 2023 Vaginal Delivery Summary The patient dilated to complete and pushed to deliver a viable female Apgars 8 and 9 via over intact perineum. Mouth and nose bulb suctioned at perineum. Shoulders and body delivered with ease. Infant was vigorous and crying at . Cord clamped at 30+ seconds of life and to maternal abdomen where the cord was then doubly clamped and cut. Placenta delivered spontaneously and intact, three-vessel cord. Hemostasis achieved with dilute pitocin and uterine massage and drainage of the bladder for approximately 75 cc under sterile conditions. Cervix and sulci intact. QBL 267 cc. Mother and baby stable in recovery. [facility] Vaginal Delivery Charge Delivery Type Details:
[2023-12-25] MEDS ORDERED: OXYTOCIN 30 UNITS/NSS 30 UNITS/500 ML BAG IV PRN (00:04)
[2023-12-25] MEDS ORDERED: ACETAMINOPHEN 325 MG TAB PO PRN (00:04)
[2023-12-25] MEDS ORDERED: bisacodyL 10 MG SUPP PR PRN (00:04)
[2023-12-25] MEDS ORDERED: DIPHTHER/TETAN/PERTUS Vaccine (Tdap, Adol/Adult) 0.5mL IM ONE (00:04)
[2023-12-25] MEDS ORDERED: BENZOCAINE 20% SPRY 85 APPLN/85 GM CAN EXT PRN (00:04)
[2023-12-25] MEDS ORDERED: HYDROCORTISONE ACETATE 25 MG SUPP PR PRN (00:04)
[2023-12-25] MEDS ORDERED: oxyCODONE/ACETAMINOPHEN 5mg/325mg TAB PO PRN (00:04)
[2023-12-25] MEDS: OXYTOCIN 20 UNITS/LR 1,002 ML IV SCH (00:47)
[2023-12-25] MEDS: IBUPROFEN 600 MG TAB PO PRN (05:32)
[2023-12-25] MEDS: LEVOTHYROXINE SODIUM 88 MCG TABLET PO SCH (05:32)
--- NOTE | 2023-12-25 06:48 | Obstetrical Progress Note ---
Date of Service December 25, 2023 Assessment & Plan (1) exam: Plan stable, routine care. rhpos/ri/breast. Day #:: 1 Subjective Ambulation: ambulating normally Voiding: no voiding problems Diet Tolerance:: regular diet Lochia:: Small Feeding Type:: breast feeding no concerns. using heating pad for cramps. Constitutional: + as per Subjective / HPI Physical Exam Constitutional WD/WN, vitals as above Respiratory normal respiratory effort, lungs clear to auscultation Cardiovascular Rate/Rhythm: regular rate and regular rhythm Gastrointestinal (Abdomen) Inspection/Auscultation: abdomen normal to inspection Percussion/Palpation: abdomen soft Fundus firm 2cm down Musculoskeletal nt calves no edema Neurologic grossly normal Psychiatric A+Ox3, euthymic affect Results & Data Vital Signs (Past 12 Hours) Vital Signs Temp Pulse Pulse Resp BP BP Pulse Ox 12/25/23 03:20 98.2 F 87 18 108/55 L 98 12/25/23 02:12 98 H 117/63 12/25/23 02:00 98.2 F 16 12/25/23 01:57 95 H 109/62 12/25/23 01:42 94 H 121/66 12/25/23 01:30 16 12/25/23 01:28 90 116/66 12/25/23 01:12 98 H 111/75 12/25/23 01:00 16 12/25/23 00:58 99 H 110/75 12/25/23 00:45 16 12/25/23 00:43 96 H 108/58 L 12/25/23 00:30 16 12/25/23 00:28 92 H 117/59 L 12/25/23 00:15 16 12/25/23 00:13 96 H 129/60 12/25/23 00:00 97.7 F 16 12/24/23 23:58 206 H 131/62 12/24/23 23:54 102 H 100 12/24/23 23:49 87 99 12/24/23 23:44 99 H 100 12/24/23 23:39 112 H 100 12/24/23 23:38 106 H 92 12/24/23 23:34 86 100 12/24/23 23:32 95 H 93 12/24/23 23:30 16 12/24/23 23:30 16 12/24/23 23:29 98 H 98 12/24/23 23:27 80 96/53 L 12/24/23 23:25 83 88/51 L 12/24/23 23:24 99 12/24/23 23:24 104 H 12/24/23 23:24 104 H 91 12/24/23 23:19 93 H 100 12/24/23 23:14 81 100 12/24/23 23:13 84 79/51 L 12/24/23 23:09 75 98 12/24/23 23:04 77 98 12/24/23 23:00 16 12/24/23 23:00 16 12/24/23 22:59 79 100 12/24/23 22:58 73 100/53 L 12/24/23 22:54 74 98 12/24/23 22:49 81 100 12/24/23 22:45 70 92/50 L 12/24/23 22:44 78 98 12/24/23 22:42 90 90 12/24/23 22:40 98.4 F 12/24/23 22:39 91 H 100 12/24/23 22:34 90 100 12/24/23 22:30 16 12/24/23 22:30 16 12/24/23 22:29 110 H 99 12/24/23 22:28 95 H 98/61 L 12/24/23 22:24 106 H 95 12/24/23 22:23 80 94 12/24/23 22:19 94 H 98 12/24/23 22:14 99 H 98 12/24/23 22:13 102 H 109/66 93 12/24/23 22:09 103 H 97 12/24/23 22:04 101 H 97 12/24/23 22:00 16 12/24/23 22:00 16 12/24/23 21:59 100 H 96 12/24/23 21:58 82 115/60 12/24/23 21:54 76 96 12/24/23 21:49 83 97 12/24/23 21:44 93 H 97 12/24/23 21:43 82 117/62 12/24/23 21:39 99 H 97 12/24/23 21:34 85 99 12/24/23 21:30 16 12/24/23 21:30 16 12/24/23 21:29 105 H 100 12/24/23 21:28 88 116/73 12/24/23 21:23 84 100 12/24/23 21:18 82 99 12/24/23 21:13 99 12/24/23 21:13 87 12/24/23 21:13 89 109/66 12/24/23 21:07 80 100 12/24/23 21:02 89 100 12/24/23 21:00 97.7 F 16 12/24/23 20:59 81 133/68 12/24/23 20:57 79 100 12/24/23 20:52 82 100 12/24/23 20:47 80 100 12/24/23 20:44 78 109/78 12/24/23 20:42 79 100 12/24/23 20:37 77 99 12/24/23 20:32 79 100 12/24/23 20:30 16 12/24/23 20:30 16 12/24/23 20:28 78 109/59 L 12/24/23 20:27 95 H 98 12/24/23 20:22 76 99 12/24/23 20:17 78 97 12/24/23 20:14 80 108/58 L 12/24/23 20:12 70 97 12/24/23 20:07 73 98 12/24/23 20:02 82 98 12/24/23 20:00 16 12/24/23 20:00 16 12/24/23 19:59 71 101/54 L 12/24/23 19:57 81 98 12/24/23 19:52 74 98 12/24/23 19:47 82 98 12/24/23 19:42 87 118/70 99 12/24/23 19:39 90 126/62 12/24/23 19:37 73 98 12/24/23 19:33 81 113/66 12/24/23 19:32 79 98 12/24/23 19:28 73 116/69 12/24/23 19:27 93 H 98 12/24/23 19:22 75 111/68 100 12/24/23 19:17 88 112/70 100 12/24/23 19:13 85 112/66 12/24/23 19:12 80 99 12/24/23 19:07 99 12/24/23 19:07 80 12/24/23 19:07 78 111/65 12/24/23 19:02 100 12/24/23 19:02 76 12/24/23 19:02 81 121/68 12/24/23 19:00 73 16 115/66 12/24/23 18:58 88 116/68 12/24/23 18:57 74 100 12/24/23 18:56 69 122/71 12/24/23 18:55 82 124/73 12/24/23 18:52 82 100 12/24/23 18:47 86 100 O2 Del Method 12/25/23 03:20 Room Air 12/25/23 02:12 12/25/23 02:00 12/25/23 01:57 12/25/23 01:42 12/25/23 01:30 12/25/23 01:28 12/25/23 01:12 12/25/23 01:00 12/25/23 00:58 12/25/23 00:45 12/25/23 00:43 12/25/23 00:30 12/25/23 00:28 12/25/23 00:15 12/25/23 00:13 12/25/23 00:00 12/24/23 23:58 12/24/23 23:54 12/24/23 23:49 12/24/23 23:44 12/24/23 23:39 12/24/23 23:38 12/24/23 23:34 12/24/23 23:32 12/24/23 23:30 12/24/23 23:30 12/24/23 23:29 12/24/23 23:27 12/24/23 23:25 12/24/23 23:24 12/24/23 23:24 12/24/23 23:24 12/24/23 23:19 12/24/23 23:14 12/24/23 23:13 12/24/23 23:09 12/24/23 23:04 12/24/23 23:00 12/24/23 23:00 12/24/23 22:59 12/24/23 22:58 12/24/23 22:54 12/24/23 22:49 12/24/23 22:45 12/24/23 22:44 12/24/23 22:42 12/24/23 22:40 12/24/23 22:39 12/24/23 22:34 12/24/23 22:30 12/24/23 22:30 12/24/23 22:29 12/24/23 22:28 12/24/23 22:24 12/24/23 22:23 12/24/23 22:19 12/24/23 22:14 12/24/23 22:13 12/24/23 22:09 12/24/23 22:04 12/24/23 22:00 12/24/23 22:00 12/24/23 21:59 12/24/23 21:58 12/24/23 21:54 12/24/23 21:49 12/24/23 21:44 12/24/23 21:43 12/24/23 21:39 12/24/23 21:34 12/24/23 21:30 12/24/23 21:30 12/24/23 21:29 12/24/23 21:28 12/24/23 21:23 12/24/23 21:18 12/24/23 21:13 12/24/23 21:13 12/24/23 21:13 12/24/23 21:07 12/24/23 21:02 12/24/23 21:00 12/24/23 20:59 12/24/23 20:57 12/24/23 20:52 12/24/23 20:47 12/24/23 20:44 12/24/23 20:42 12/24/23 20:37 12/24/23 20:32 12/24/23 20:30 12/24/23 20:30 12/24/23 20:28 12/24/23 20:27 12/24/23 20:22 12/24/23 20:17 12/24/23 20:14 12/24/23 20:12 12/24/23 20:07 12/24/23 20:02 12/24/23 20:00 12/24/23 20:00 12/24/23 19:59 12/24/23 19:57 12/24/23 19:52 12/24/23 19:47 12/24/23 19:42 12/24/23 19:39 12/24/23 19:37 12/24/23 19:33 12/24/23 19:32 12/24/23 19:28 12/24/23 19:27 12/24/23 19:22 12/24/23 19:17 12/24/23 19:13 12/24/23 19:12 12/24/23 19:07 12/24/23 19:07 12/24/23 19:07 12/24/23 19:02 12/24/23 19:02 12/24/23 19:02 12/24/23 19:00 12/24/23 18:58 12/24/23 18:57 12/24/23 18:56 12/24/23 18:55 12/24/23 18:52 12/24/23 18:47
--- NOTE | 2023-12-25 07:00 | Anesthesia Procedure Note ---
Date of Service December 25, 2023 Anesthesia Post Epidural Note Vital Signs Vital Signs: Temp Pulse Resp BP Pulse Ox O2 Del Method 36.8 C 87 18 108/55 L 98 Room Air 12/25/23 03:20 12/25/23 03:20 12/25/23 03:20 12/25/23 03:20 12/25/23 03:20 12/25/23 03:20 Notes Mental Status: alert / awake / arousable Nausea / Vomiting: adequately controlled Pain: adequately controlled Airway Patency, RR, SpO2: stable & adequate BP & HR: stable & adequate Hydration State: stable & adequate Neuraxial Anesthesia: was administered and sensory block is resolving Anesthetic Complications: no major complications apparent and Pt Satisfied with anesthetic care Epidural: Removed without complications and With tip intact
[2023-12-25] MEDS: PRENATAL VITAMIN 1 TAB PO SCH (08:42)
[2023-12-25] MEDS: DOCUSATE SODIUM 100 MG CAP PO SCH (08:42)
--- NOTE | 2023-12-26 06:35 | Obstetrical Progress Note ---
Date of Service <Ronaldo Brown - Last Filed: 12/26/23 06:40> December 26, 2023 Assessment & Plan <Ronaldo Brown DO - Last Filed: 12/26/23 06:40> (1) exam: Plan 38 y/o PPD#2: Eating well, voiding well, ambulating well Vitals reviewed, WNL Pain well controlled with Motrin Routine post care - OOB, ambulation, diet progression as tolerated Rh negative mother - baby Rh negative Will have 6 week follow up with Dr. Foster <Ellen New MD, FACOG - Last Filed: 12/26/23 07:04> (1) exam: Subjective <Ronaldo Brown - Last Filed: 12/26/23 06:40> Ambulation: ambulating normally Voiding: no voiding problems Diet Tolerance:: regular diet Lochia:: Small Feeding Type:: breast feeding pain well controlled with Motrin Review of Systems -Denies fever or chills -Denies dyspnea, chest pain, or palpitations -Denies dysuria -Denies headache or changes in vision Physical Exam <Ronaldo Brown - Last Filed: 12/26/23 06:40> General: Alert and oriented. No acute distress Cardiac: Regular rate and rhythm, no murmurs appreciated Respiratory: Lungs clear to auscultation bilaterally, No increased work of breathing Abdominal: Soft, non-tender, non-distended. Bowel sounds present. Uterus: Uterine fundus firm, palpable below umbilicus Extremities: No lower extremity edema, calves non-tender bilaterally Results & Data <Ronaldo Brown - Last Filed: 12/26/23 06:40> Vital Signs (Past 12 Hours) Vital Signs Temp Pulse Resp BP Pulse Ox O2 Del Method 12/25/23 23:10 36.8 C 75 18 125/74 97 Room Air 12/25/23 19:07 36.8 C 76 18 126/76 98 Room Air Supervising Physician <Ellen New MD, FACOG - Last Filed: 12/26/23 07:04> Co-Signing Physician Notes Resident Physician Supervision Note: I interviewed and examined the patient. Discussed with Dr. Brown and agree with findings and plan as documented in the note. Any exceptions or clarifications are listed here: Doing well. Meeting milestones. Breast feeding without difficulty. Desires d/c. INstructions given. Documented By: Ellen New MD, FACOG Resident Activity Tracking <Ronaldo Brown DO - Last Filed: 12/26/23 06:40> Resident Involvement: Resident Care Provided Care Provided: OB Delivery
[2023-12-31] MEDS ORDERED: LEVOTHYROXINE SODIUM 88 MCG TABLET PO SCH (06:30)
== END 2023-12-26 11:20 | disposition home or self-care (01) | DRG 807 ==
LOC: 4S1 15:20 → 4E1 12-25 03:13